=== PATIENT | female | born 1930 | race Caucasian/White ===

== ENCOUNTER 2017-06-27 19:57 | Inpatient (IN) | payer MEDICARE ==
[~2017-06-27] VITALS: Ht 152.4 cm; Wt 64.9 kg
[~2017-06-27 19:57] MED LIST: DIOVAN80 MG PO; ECO81 PO; GLUCOTROL5 MG PO; ISORDIL TITRADOS5 M1 PO; PRI20 PO; ZOC10 PO
[2017-06-27 21:04] LABS: BASOPHIL % 0.3 % (0-2); PLATELET COUNT 156 x10^3mcL (130-400); RED CELL DISTRIBUTION WIDTH 13.2 % (11.5-14.5)
[2017-06-27 21:14] LABS: CARBON DIOXIDE 26.2 mmol/L (21-32); CHLORIDE SERUM 105 mmol/L (98-107); CREATININE SERUM 1.1 mg/dL (0.6-1.0); GLUCOSE SERUM 213 mg/dL (74-106); POTASSIUM SERUM 4.2 mmol/L (3.5-5.1); SODIUM SERUM 141 mmol/L (136-145)
[2017-06-27 21:16] LABS: ALBUMIN 3.6 g/dL (3.4-5.0); ALKALINE PHOSPHATASE 99 U/L (46-116); ALT/SGPT 16 U/L (14-59); AST/SGOT 5 U/L (15-37); BILIRUBIN TOTAL 0.25 mg/dL (0.20-1.00); TOTAL PROTEIN, SERUM 8.1 g/dL (6.4-8.2)
[2017-06-27 21:26] LABS: T3 TOTAL 1.04 ng/mL
[2017-06-27 21:29] LABS: FREE T4 1.15 ng/dL (0.76-1.46); FREE THYROXINE INDEX 3.4 ug/dL (1.4-4.5); T4(THYROXINE) 9.3 ug/dL (4.7-13.3)
[2017-06-27] MEDS ORDERED: DIOVAN80 MG PO (22:14)
[2017-06-27 23:54] LABS: AMYLASE 49 U/L (25-115); CHOLESTEROL 188 mg/dL (<200); CHOLESTEROL/HDL RATIO 4.5; HDL CHOLESTEROL 42 mg/dL (40-60); LIPASE 207 IU/L (73-393)
[2017-06-27 23:55] LABS: TRIGLYCERIDES 536 mg/dL (<150)
[2017-06-28 02:03] VITALS: BP 156/75
[2017-06-28 02:57] LABS: UA SPECIFIC GRAVITY <=1.005 (1.005-1.035); microscopic required? YES; urine erythrocyte TRACE (NEGATIVE)
[2017-06-28 05:59] VITALS: BP 118/71
[2017-06-28 06:12] LABS: BASOPHIL % 0.5 % (0-2); PLATELET COUNT 156 x10^3mcL (130-400); RED CELL DISTRIBUTION WIDTH 12.9 % (11.5-14.5)
[2017-06-28 06:37] LABS: CALCIUM 8.7 mg/dL (8.5-10.1); CARBON DIOXIDE 30.4 mmol/L (21-32); CHLORIDE SERUM 107 mmol/L (98-107); CREATININE SERUM 0.9 mg/dL (0.6-1.0); GLUCOSE SERUM 132 mg/dL (74-106); POTASSIUM SERUM 4.1 mmol/L (3.5-5.1); SODIUM SERUM 143 mmol/L (136-145)
[2017-06-28 09:58] VITALS: BP 120/54
[2017-06-28 13:55] VITALS: BP 97/56
[2017-06-28 18:02] VITALS: BP 96/57
[2017-06-28 21:14] VITALS: BP 126/59
[2017-06-29 06:02] VITALS: BP 130/72
[2017-06-29 06:34] LABS: CALCIUM 8.4 mg/dL (8.5-10.1); CARBON DIOXIDE 29.2 mmol/L (21-32); CHLORIDE SERUM 108 mmol/L (98-107); CREATININE SERUM 0.9 mg/dL (0.6-1.0); GLUCOSE SERUM 127 mg/dL (74-106); MAGNESIUM 1.7 mg/dL (1.8-2.4); PHOSPHOROUS 3.1 mg/dL (2.5-4.9); POTASSIUM SERUM 4.2 mmol/L (3.5-5.1); SODIUM SERUM 144 mmol/L (136-145)
[2017-06-29 06:45] LABS: BASOPHIL % 0.4 % (0-2); PLATELET COUNT 158 x10^3mcL (130-400); RED CELL DISTRIBUTION WIDTH 13.1 % (11.5-14.5)
[2017-06-29 08:12] VITALS: BP 159/77
[2017-06-29 11:30] VITALS: BP 124/72
[2017-06-29] MEDS ORDERED: XARELTO20 M1 PO (16:37)
[2017-06-29 16:41] VITALS: BP 124/72
== END 2017-06-29 18:35 | disposition home or self-care (01) | DRG 308 ==
LOC: ED 19:57 → DU 22:01
PROVIDERS: Emergency Medicine; ADMIT Family Medicine Sports Medicine
DX: I48.91 Unspecified atrial fibrillation (principal); N17.0 Acute kidney failure with tubular necrosis; I16.0 Hypertensive urgency; E11.65 Type 2 diabetes mellitus with hyperglycemia; E11.51 Type 2 diabetes mellitus with diabetic peripheral angiopathy without gangrene; E78.1 Pure hyperglyceridemia; K57.30 Diverticulosis of large intestine without perforation or abscess without bleeding; Z68.27 Body mass index [BMI] 27.0-27.9, adult
CPT/HCPCS: 82962; 83880; 84439; J3475; J3490; J7030; Q0092

== ENCOUNTER 2017-07-02 16:18 | Observation (INO) | payer MEDICARE ==
[~2017-07-02] VITALS: Ht 152.4 cm; Wt 74.6 kg
[~2017-07-02 16:18] MED LIST changes: +XARELTO20 M1 PO
[2017-07-02 17:30] LABS: CALCIUM 8.8 mg/dL (8.5-10.1); CARBON DIOXIDE 29.8 mmol/L (21-32); CHLORIDE SERUM 104 mmol/L (98-107); GLUCOSE SERUM 195 mg/dL (74-106); POTASSIUM SERUM 4.5 mmol/L (3.5-5.1); SODIUM SERUM 140 mmol/L (136-145)
[2017-07-02 17:35] LABS: ALBUMIN 3.5 g/dL (3.4-5.0); ALKALINE PHOSPHATASE 87 U/L (46-116); ALT/SGPT 20 U/L (14-59); AST/SGOT 19 U/L (15-37); BILIRUBIN TOTAL 0.27 mg/dL (0.20-1.00); TOTAL PROTEIN, SERUM 7.5 g/dL (6.4-8.2)
[2017-07-02 17:41] LABS: BASOPHIL % 0.5 % (0-2); PLATELET COUNT 162 x10^3mcL (130-400); RED CELL DISTRIBUTION WIDTH 13.4 % (11.5-14.5)
[2017-07-02 19:31] LABS: CHOLESTEROL/HDL RATIO 3.6; MAGNESIUM 1.9 mg/dL (1.8-2.4); PHOSPHOROUS 3.8 mg/dL (2.5-4.9); T3 TOTAL 0.82 ng/mL
[2017-07-02 19:42] LABS: FREE T4 1.16 ng/dL (0.76-1.46); FREE THYROXINE INDEX 3.7 ug/dL (1.4-4.5); T4(THYROXINE) 9.8 ug/dL (4.7-13.3)
[2017-07-02 20:01] VITALS: BP 119/82
[2017-07-02 22:30] VITALS: BP 115/52
[2017-07-03 01:54] VITALS: BP 136/76
[2017-07-03 04:55] VITALS: BP 139/68
[2017-07-03 06:18] LABS: BASOPHIL % 0.6 % (0-2); PLATELET COUNT 145 x10^3mcL (130-400); RED CELL DISTRIBUTION WIDTH 13.3 % (11.5-14.5)
[2017-07-03 06:49] LABS: CALCIUM 8.5 mg/dL (8.5-10.1); CARBON DIOXIDE 29.6 mmol/L (21-32); CHLORIDE SERUM 107 mmol/L (98-107); CREATININE SERUM 0.9 mg/dL (0.6-1.0); GLUCOSE SERUM 141 mg/dL (74-106); MAGNESIUM 1.8 mg/dL (1.8-2.4); PHOSPHOROUS 3.6 mg/dL (2.5-4.9); POTASSIUM SERUM 4.1 mmol/L (3.5-5.1); SODIUM SERUM 142 mmol/L (136-145)
[2017-07-03 08:09] VITALS: BP 149/80
[2017-07-03 10:03] VITALS: BP 140/69
[2017-07-03 14:04] VITALS: BP 145/65
[2017-07-03] MEDS ORDERED: XARELTO10 M1 PO (15:58)
[2017-07-03] MEDS ORDERED: LIPI10 PO (15:59)
[2017-07-03] MEDS ORDERED: DILTIAZEM30 M1 PO (16:00)
[2017-07-03] MEDS ORDERED: L20 PO (16:02)
[2017-07-03 17:13] VITALS: BP 145/65
== END 2017-07-03 18:15 | disposition home or self-care (01) | DRG 308 ==
LOC: ED 16:18 → DU 18:29
PROVIDERS: Emergency Medicine; ADMIT Family Medicine Sports Medicine
DX: I48.92 Unspecified atrial flutter (principal); N17.0 Acute kidney failure with tubular necrosis; I50.43 Acute on chronic combined systolic (congestive) and diastolic (congestive) heart failure; M94.0 Chondrocostal junction syndrome [Tietze]; K21.9 Gastro-esophageal reflux disease without esophagitis; E11.65 Type 2 diabetes mellitus with hyperglycemia; E11.51 Type 2 diabetes mellitus with diabetic peripheral angiopathy without gangrene; I11.0 Hypertensive heart disease with heart failure; R31.9 Hematuria, unspecified; E78.1 Pure hyperglyceridemia; K57.90 Diverticulosis of intestine, part unspecified, without perforation or abscess without bleeding; E66.9 Obesity, unspecified; Z68.32 Body mass index [BMI] 32.0-32.9, adult
CPT/HCPCS: 82962; 83880; 84439; G0378; J3490; J7030; Q0092